=== PATIENT | female | born 1980 ===

== ENCOUNTER 2020-02-04 15:31 | Emergency (ER) | payer BC, OTHER ==
[2020-02-04 16:33] VITALS: BP 103/65
--- NOTE | 2020-02-04 16:50 | UC ---
UC General HPI - HPI Summary HPI Summary: patient experienced nausea and diarrhea yesterday. after one of her BMs she saw blood in toilet with BM. denies pain with BM, no feeling of fullness in rectum. No hx hemorrhoids she has no abd pain except just before BM. Today she has no Nausea, 1-2 episodes diarrhea -is on clear fluids so very little stool but did see small amount bright red blood in toilet bowl after BM. denies vaginal bleeding or any urinary symps no contact farm animals, no close contact with same, no recent travel, has tried no meds for symps - History of Current Complaint Chief Complaint: UCGI Stated Complaint: NAUSEA AND DIARRHEA Time Seen by Provider: 02/04/20 16:10 Hx Obtained From: Patient Hx Last Menstrual Period: 01/12/20 Onset/Duration: Sudden Onset Timing: Intermittent Episodes Lasting: Onset Severity: Mild Current Severity: None Pain Intensity: 0 Associated Signs & Symptoms: Positive: Nausea. Negative: Anticoagulation Therapy, Dizziness, Fever, Hemoptysis, Vomiting, Weakness - Allergy/Home Medications Allergies/Adverse Reactions: Allergies Allergy/AdvReac Type Severity Reaction Status Date / Time No Known Allergies Allergy Verified 02/04/20 16:30 Home Medications: Home Medications NK [No Home Medications Reported] 02/04/20 [History Confirmed 02/04/20] PMH/Surg Hx/FS Hx/Imm Hx Previously Healthy: Yes - Surgical History Surgical History: None - Family History Known Family History: Positive: Other - diverticulitis - Social History Occupation: Employed Full-time Lives: Alone Alcohol Use: Occasionally Substance Use Type: None Smoking Status (MU): Never Smoked Tobacco Review of Systems All Other Systems Reviewed And Are Negative: Yes Constitutional: Positive: Negative. Negative: Fever, Chills Respiratory: Positive: Negative. Negative: Shortness Of Breath, Cough Cardiovascular: Positive: Negative. Negative: Chest Pain Gastrointestinal: Positive: Abdominal Pain - described as "bloating feeling" bilateral central abd, Diarrhea, Nausea. Negative: Vomiting Genitourinary: Positive: Negative. Negative: Dysuria, Hematuria, Frequency Psychological: Positive: Negative Is Patient Immunocompromised?: No Physical Exam Triage Information Reviewed: Yes Appearance: Well-Appearing, No Pain Distress, Well-Nourished Vital Signs: Initial Vital Signs Temp 98.4 F 02/04/20 16:31 Pulse 73 02/04/20 16:31 Resp 16 03/22/20 16:31 BP 103/65 02/04/20 16:31 Pulse Ox 100 02/04/20 16:31 Vital Signs Reviewed: Yes Respiratory Exam: Normal Respiratory: Positive: Lungs clear Cardiovascular Exam: Normal Cardiovascular: Positive: RRR Abdominal Exam: Normal Abdomen Description: Positive: Nontender, No Organomegaly, Soft. Negative: CVA Tenderness (R), CVA Tenderness (L), Distended, Guarding, McBurney's Point Tenderness, Peritoneal Signs Bowel Sounds: Positive: Present Neurological Exam: Normal Psychological Exam: Normal Skin Exam: Normal Course/Dx - Differential Dx - Multi-Symptom Differential Diagnoses: Urinary Tract Infection, Other - acute abdomen, hemorrhoid, colitis, gastroenteritis, infectious diarrhea - Diagnoses Provider Diagnosis: Gastroenteritis Discharge ED - Sign-Out/Discharge Documenting (check all that apply): Patient Departure All imaging exams completed and their final reports reviewed: No Studies - Discharge Plan Condition: Good Disposition: HOME Patient Education Materials: Gastroenteritis (DC) Referrals: No Primary Care Phys,NOPCP [Primary Care Provider] - [facility] [place] [facility] [Outside] Additional Instructions: remain on clear liquid diet for 24 hours and then advance to bland diet Please report to emergency department if your symptoms worsen, you develop abdominal pain, fever or bleeding worsens Make sure to follow-up with primary care provider for recheck in 1-2 weeks - Billing Disposition and Condition Condition: GOOD Disposition: Home
== END 2020-02-04 17:10 | disposition home or self-care (01) ==
LOC: UCEAST 15:31
DX: K52.9 Noninfective gastroenteritis and colitis, unspecified (principal)
CPT/HCPCS: 99201; G0463